=== PATIENT | female | born 2000 | race Caucasian/White ===

== ENCOUNTER 2020-10-22 11:49 | Outpatient (REF) | payer SELFPAY | END 2020-10-22 11:50 | disposition home or self-care (01) | LOC: HO.LAB 11:49 | PROVIDERS: Visit Provider Internal Medicine | DX: Z20.828 Contact with and (suspected) exposure to other viral communicable diseases (principal) | CPT/HCPCS: C9803; U0003 ==

== ENCOUNTER 2021-05-13 07:54 | Outpatient (REF) | payer OTHER, SELFPAY ==
[2021-05-13 08:29] LABS: MANUAL DIFF FLAG NO
[2021-05-13 08:33] LABS: Basophils Percent Auto 0.6 % (0-2); Eosinophils Absolute Auto 0.1 X10*3/uL (0.0-0.4); Eosinophils Percent Auto 1.8 % (0-4); Hematocrit 41.3 % (37-47); Hemoglobin 13.2 g/dl (12.0-16.0); Imm Gran Abs Auto 0.01 X10*3/uL (0.00-0.03); Imm Gran Pct Auto 0.2 % (0.0-0.4); Lymphocytes Absolute Auto 2.1 X10*3/uL (1.2-4.9); Lymphocytes Percent Auto 42.5 % (20-40); Mean Corpuscular Hemoglobin 29.9 pg (27.0-33.0); Mean Corpuscular Volume 93.7 fL (80-98); Mean Platelet Volume 10.3 fL (9.4-12.3); Monocytes Absolute Auto 0.3 X10*3/uL (0.1-1.2); Monocytes Percent Auto 6.3 % (2-11); Neutrophils Absolute Auto 2.4 X10*3/uL (2.0-8.3); Neutrophils Percent Auto 48.6 % (45-73); Platelet Count 278 X10*3/uL (160-400); Red Blood Count 4.41 X10*6/uL (4.20-5.50); Red Cell Distribution Width 12.9 % (11.0-16.0)
[2021-05-13 08:44] LABS: Estimated Average Glucose 103 mg/dL; Hemoglobin A1c % 5.2 %
[2021-05-13 09:15] LABS: Alanine Aminotransferase 7 U/L (0-31); Albumin Level 4.4 g/dL (3.5-5.0); Alkaline Phosphatase 60 U/L (39-117); Anion Gap 11 (12-20); Aspartate Amino Transferase 17 U/L (5-31); Bilirubin Total 0.6 mg/dL (0.0-1.0); Blood Urea Nitrogen 10 mg/dL (9-16); Calcium 9.6 mg/dL (8.4-10.2); Carbon Dioxide 24 mmol/L (22-29); Chloride 108 mmol/L (96-108); Cholesterol 152 mg/dL; Estimated Glomerular Filt Rate > 60; Glucose Fasting 93 mg/dL (60-99); HDL Cholesterol 69 mg/dL; LDL Cholesterol Calculated 71 mg/dl; Potassium 4.1 mmol/L (3.3-5.1); Sodium 139 mmol/L (135-145); Total Protein 7.2 g/dL (6.5-8.0); Triglycerides 60 mg/dL
[2021-05-13 09:37] LABS: Free T4 (Free Thyroxine) 0.99 ng/dL (0.71-1.85)
[2021-05-13 09:44] LABS: Vitamin B12 257 pg/mL (200-900)
== END 2021-05-13 07:55 | disposition home or self-care (01) ==
LOC: HO.LAB 07:54
PROVIDERS: PCP Internal Medicine; Visit Provider Nurse Practitioner Family
DX: R42 Dizziness and giddiness (principal)
CPT/HCPCS: 36415; 80053; 80061; 82306; 82607; 82746; 83036; 84439; 84443; 85025

== ENCOUNTER 2022-09-02 18:29 | Emergency (ER) | payer OTHER, SELFPAY ==
--- NOTE | ~2022-09-02 | XR_ITS ---
EXAMINATION: X-RAY RIGHT HAND/WRIST X-RAY LEFT HAND/WRIST CLINICAL INFORMATION: Trauma, pain. COMPARISON: None TECHNIQUE: 4 views of each hand/wrist were obtained. FINDINGS: Right hand/wrist: Comminuted mildly displaced fracture of the third proximal phalanx. No additional fractures. No unexpected radiopaque foreign bodies. Left hand/wrist: Comminuted mildly displaced fractures of the distal fourth and fifth metacarpal bones. No additional fractures. No unexpected radiopaque foreign bodies. XR/XR hand wrist LT IMPRESSION: 1. Comminuted mildly displaced fractures of the distal left fourth and fifth metacarpal bones. 2. Comminuted mildly displaced fracture of the right third proximal phalanx.
--- NOTE | ~2022-09-02 | XR_ITS ---
EXAMINATION: X-RAY RIGHT HAND/WRIST X-RAY LEFT HAND/WRIST CLINICAL INFORMATION: Trauma, pain. COMPARISON: None TECHNIQUE: 4 views of each hand/wrist were obtained. FINDINGS: Right hand/wrist: Comminuted mildly displaced fracture of the third proximal phalanx. No additional fractures. No unexpected radiopaque foreign bodies. Left hand/wrist: Comminuted mildly displaced fractures of the distal fourth and fifth metacarpal bones. No additional fractures. No unexpected radiopaque foreign bodies. XR/XR hand wrist RT IMPRESSION: 1. Comminuted mildly displaced fractures of the distal left fourth and fifth metacarpal bones. 2. Comminuted mildly displaced fracture of the right third proximal phalanx.
[2022-09-02 19:12] VITALS: BP 106/81; PULSE 73; RESP 18; TEMP 36.1; O2SAT 99; BMI 23.6
[2022-09-02] MEDS: Acetaminophen 325 MG TABLET 975 MG PO (23:29)
[2022-09-02] MEDS: Ibuprofen 400 MG TABLET PO (23:32)
[2022-09-03] VITALS: BP 127/75; PULSE 67; RESP 18; TEMP 37.1; O2SAT 98
--- NOTE | 2022-09-03 00:09 | PC.NURSE ---
PT VS AND SPLINTING WAS DONE BY THIS PCT .
--- NOTE | 2022-09-03 00:26 | ED_ITS ---
HPI - Extremity Problem General Chief complaint: Extremity Injury, Upper Stated complaint: sent by [facility] for xrays on wrist and fingers Time Seen by Provider: 09/02/22 22:01 Source: patient Mode of arrival: ambulatory History of Present Illness HPI Narrative: 21-year-old female who was at work and dropped a high press which crushed both hands. Related Data Previous Rx's Medication Instructions Recorded albuterol sulfate 90 mcg/actuation 2 puff inhalation Q4-6H PRN 05/12/21 aerosol inhaler (ProAir HFA) shortness of breath or wheezing 90 days #8.5 grams Allergies Allergy/AdvReac Type Severity Reaction Status Date / Time No Known Allergies Allergy Verified 05/12/21 15:01 Review of Systems Review of Systems: Pertinent positives and negatives as stated in HPI 10 point review of systems is otherwise negative. [facility] Past Medical History Source: nursing notes reviewed Medical History History of eclampsia History of pre-eclampsia Lightheadedness Polyuria Surgical History No history of previous surgery Family History Family History Father No problems noted. Mother No problems noted. Social History Social History Housing: House Alcohol intake: never Patient Tobacco Use Status: Never used Tobacco Advance Directives: No Advance Directives Information Provided: No service: No Current occupational status: employed Physical Exam Vital Signs: Vital Signs: Last Vital Signs Temp 98.7 F 09/03/22 00:00 Pulse 67 09/03/22 00:00 Resp 18 09/03/22 00:00 BP 127/75 09/03/22 00:00 Pulse Ox 98 09/03/22 00:00 O2 Del Method 09/03/22 00:00 BMI result Body Mass Index 23.6 VITAL SIGNS: Reviewed. GENERAL: Well developed, well nourished, in no acute distress. HEAD: Normocephalic/atraumatic EYES: PERRLA, EOMI EARS: Ext canals without abnormality OROPHARYNX: no oral lesions noted, posterior pharynx clear LUNGS: Normal breath sounds. No adventitious sounds or accessory muscle use. SpO2<98> CARDIOVASCULAR: Regular rate and rhythm without noted murmurs ABDOMEN: Soft, non-tender, non-distended with bowel sounds. MUSCULOSKELETAL: No tenderness, deformities, or effusions noted on gross inspection. EXTREMITIES: No cyanosis, clubbing or edema. LEFT HAND: Significant swelling and ecchymosis over the dorsal aspect of the left hand with difficulty in movement of the 4th and 5th digits but otherwise sensation is intact, capillary refill is intact and palpable radial/ulnar pulses. RIGHT HAND: Significant swelling and ecchymosis primarily over the 3rd digit with sensation intact. SKIN: Inspection of the skin reveals no rashes NEUROLOGIC: Alert and oriented x 4. Strength and sensation to light touch were grossly intact x 4. Course Course Course Narrative: 21-year-old female with history and clinical presentation consistent with crush injury and suspect multiple fractures. On review of all imaging studies there are noted comminuted, mildly displaced fractures of the distal left 4th and 5th metacarpal bones and comminuted mildly displaced fracture of the right 3rd proximal phalanx. Patient was provided with combination analgesics, Tdap, ulnar gutters were placed, patient will be given a referral to see orthopedics and understands that she needs to call 1st thing in the morning to set up an appointment for re-evaluation and she will be given a referral to [facility]. Discharge Plan Discharge Clinical Impression: Fracture of fourth metacarpal bone of left hand, Fracture of fifth metacarpal bone, Fracture of proximal phalanx of middle finger Patient Disposition: Home, Self-Care Instructions: Hand Fracture (ED), Splint Care (ED) Additional Instructions: 1. Tylenol 1000 mg, por v?a oral, cada 6 horas seg?n sea necesario para controlar el dolor. No exceda los 4000 mg dentro de las 24 horas. 2. Ibuprofeno 400 mg, por v?a oral con leche o alimentos, cada 6 horas seg?n sea necesario para controlar el dolor. Puede janet izabella medicamento con Tylenol. 3. Aplique hielo sobre la piel no expuesta rangel 5 a 10 minutos, 3 a 4 veces al d?a. Querr? mantener lakesha extremidades elevadas cuando sea posible. 4. Se le [place] dado joanne referencia a la conexi?n de trabajo. 5. Por favor llame a la oficina de ortopedia en la ma?juany, tamez referencia linh se indica a continuaci?n. Regrese a la trevor de emergencias si los s?ntomas empeoran. Prescriptions: No Action albuterol sulfate [ProAir HFA] 90 mcg/actuation HFA aerosol inhaler 2 puff inhalation Q4-6H PRN (Reason: shortness of breath or wheezing) 90 Days Qty: 8.5 3RF Referrals: Juany Haney MD [Primary Care Provider] - Marcia Ponce MD [Physician] - (21-year-old female with comminuted fractures of the left 4th and 5th metacarpal bones as well as comminuted fract ure of the right proximal phalanx of the middle finger. Ulnar gutter splints placed on both hands. Patient is right-hand dominant) [facility] [Outside] Stand Alone Forms: Work/School Release Print Language: Jamaican
[2022-09-03] MEDS: Diphth,Pertus(ACell),Tet Adult 0.5 ML SYRINGE IM (00:39)
== END 2022-09-03 00:51 | disposition home or self-care (01) ==
PROVIDERS: Emergency Provider Student in an Organized Health Care Education/Training Program; PCP Internal Medicine
DX: S62.305A Unspecified fracture of fourth metacarpal bone, left hand, initial encounter for closed fracture (principal); S62.307A Unspecified fracture of fifth metacarpal bone, left hand, initial encounter for closed fracture; S62.613A Displaced fracture of proximal phalanx of left middle finger, initial encounter for closed fracture; S60.512A Abrasion of left hand, initial encounter; X58.XXXA Exposure to other specified factors, initial encounter; Y93.9 Activity, unspecified; Y92.9 Unspecified place or not applicable; Y99.9 Unspecified external cause status; Z79.899 Other long term (current) drug therapy
CPT/HCPCS: 29130; 73110; 73130; 90471; 90715; 99283; 99284

== ENCOUNTER 2022-09-06 15:28 | Outpatient (REF) | payer OTHER, SELFPAY ==
--- NOTE | ~2022-09-06 | XR_ITS ---
EXAMINATION: XR HAND, LEFT CLINICAL INFORMATION: Pain in left hand COMPARISON: 09/02/2022 TECHNIQUE: PA, lateral, and oblique views of the left hand. FINDINGS: There is stable mildly comminuted fracture over the fourth and fifth metacarpal bones XR/XR hand LT min 3V IMPRESSION: Mildly comminuted fracture of the fourth and fifth metacarpal bones on the
== END 2022-09-06 15:29 | disposition home or self-care (01) ==
LOC: HO.HOSX 15:28
PROVIDERS: Visit Provider Orthopaedic Surgery
DX: S62.612A Displaced fracture of proximal phalanx of right middle finger, initial encounter for closed fracture (principal); S62.325A Displaced fracture of shaft of fourth metacarpal bone, left hand, initial encounter for closed fracture; S62.337A Displaced fracture of neck of fifth metacarpal bone, left hand, initial encounter for closed fracture; W31.82XA Contact with other commercial machinery, initial encounter; Y93.89 Activity, other specified; Y92.63 Factory as the place of occurrence of the external cause; Y99.0 Civilian activity done for income or pay
CPT/HCPCS: 73130; 99202

== ENCOUNTER 2022-09-08 10:56 | Day surgery (SDC) | payer OTHER, SELFPAY ==
[2022-09-08] VITALS (7 sets, daily range): BP systolic 104–129; BP diastolic 69–78; PULSE 63–90; RESP 16–18; TEMP 36.1–36.6; O2SAT 100; BMI 22.6
--- NOTE | ~2022-09-08 | FL_ITS ---
EXAMINATION: XR FLUOROSCOPY WITH IMAGES CLINICAL INFORMATION: Fracture right middle finger COMPARISON: Radiographs right hand wrist 09/02/2022 TECHNIQUE: Fluoroscopy Supervised By: Dr. Marcia Ponce. Fluoroscopy Time: 21 seconds. Cumulative Dose: 0.5180 mGy. Images: 4. FINDINGS: Fracture third finger middle phalanx is reduced with 2 orthopedic pins. Fracture fragments are in near-anatomic alignment. Hardware is intact. No dislocation. FL/FL guidance in OR IMPRESSION: Status post open reduction internal fixation third finger middle phalanx.
--- NOTE | 2022-09-08 11:11 | PC.NURSE ---
medical parasitologist present during admission
[2022-09-08 11:31] LABS: UPreg QC Valid YES; Urine Pregnancy NEGATIVE (NEGATIVE)
--- NOTE | 2022-09-08 11:49 | P.CONAN_ITS ---
HPI - Anesthesia Eval Consult details Narrative: Fracture right middle finger PMFSH Active Problems Active Problems: All Active Problems (Updated 09/06/22 @ 18:29 by DELL Melara) Adult general medical exam (Acute) Cervical cancer screening (Acute) Closed fracture of neck of fifth metacarpal bone of left hand (Acute) Closed fracture of shaft of fourth metacarpal bone of left hand (Acute) Fracture of proximal phalanx of right middle finger (Acute) Low vitamin D level (Acute) Lightheadedness (Acute) Asthma (Acute) Polyuria (Acute) Past Medical History Medical History History of blurry vision History of eclampsia History of pre-eclampsia Lightheadedness Polyuria Family History Family History Father No problems noted. Mother No problems noted. 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 Cognitive needs: No Hearing needs: No Vision needs: No Meds Allergies Allergy/AdvReac Type Severity Reaction Status Date / Time No Known Allergies Allergy Verified 09/06/22 16:49 Exam Exam Date and Time: September 08, 2022 1149 Height,Weight and Vital Signs: Height 5 ft 1 in Weight 54.431 kg Last Vital Signs Temp 97.9 F 09/08/22 11:36 Pulse 90 09/08/22 11:36 Resp 18 09/08/22 11:36 BP 129/78 09/08/22 11:36 Pulse Ox 100 09/08/22 11:36 O2 Del Method 09/08/22 11:36 Pertinent Lab Results Pertinent Lab Results: Laboratory Tests 09/08/22 09/08/22 11:00 11:00 Urine Test NEGATIVE [facility] Cancelled Airway Mallampati Class: II TM Dist: >3cm Neck ROM: Full Loose/Missing/Broken Teeth: Yes (right upper back tooth loose) Heart: rrr+[id number] Lungs: cta b/l Assessment and Plan Assessment Anesthesia Assessment: Anesthesia Plan Discussed and Chart Reviewed Final Anesthetic Review Family History of Problems with Anesthesia: No History of Problems with Anesthesia: No NPO: Yes ASA Class: II Final Preanesthetic Review: No Changes in Pt Med Stat, Meds/Allgs Chart Reviewed, Consent Obtained/Reviewed and Anes Risks/Benef Reviewed Patient Risk: Intermediate Procedure Risk: Intermediate Assessment/Block/Sedation in SS: Assess/Block/Sedation-SS Anesthetic Plan Anesthetic Plan: GA and Agree w/ Assess. and Plan Disposition: Standard PACU
--- NOTE | 2022-09-08 12:35 | MHC.SHP ---
Pre-Procedural Eval Section A Date of Service: 09/08/22 The patient is an INPATIENT: No Changes since office visit: No Cold of Flu in the past 2 weeks, No New Medical Problems, No Changes in Medication and No Patient answered all questions The History & Physical has been completed within 30 days and I have reviewed it.: Yes Section B Chief Complaint: Displaced fracture of proximal phalanx of right mi Allergies: Allergies Allergy/AdvReac Type Severity Reaction Status Date / Time No Known Allergies Allergy Verified 09/06/22 16:49 Plan I have reviewed the history and physical and performed a pertinent physical examination on my patient. No changes have occurred unless specified.
--- NOTE | 2022-09-08 12:36 | W.PM.OPN ---
Operative Note Operative Note Date of Service: 09/08/22 Narrative: Operative Note Narrative: Preop diagnosis: 1. Right middle finger proximal phalanx fracture Postop diagnosis: Same Procedure: 1. Right middle finger proximal phalanx fracture CRPP Surgeon: Marcia Ponce MD Anesthesia: General Anesthesia Findings: finger fracture Implants: 0.045 K-wires times 2 Tourniquet time: None EBL: Minimal Specimen: None Drains: None Complications: None Disposition: Brought to the recovery room in stable condition Plan: Follow-up in 10-14 days for a wound check, postop radiographs and for placement in a short-arm finger spica cast. We can allow for PIP motion. Also obtain radiographs of her left hand to evaluate her 4th and 5th metacarpal fractures. Out of plaster. Anticipate K-wire removal in 4 weeks based on interval bony healing Educate the patient that full fracture healing anticipated in approximately 8-12 weeks. Indications: The patient is 21 years old with a right middle finger proximal phalanx fracture after getting her hand caught in a pie press . The risks and benefits of operative treatment, including but not limited to risk of damage to blood vessels, nerves, tendons, infection, recurrence, delayed or nonunion of fracture, persistent pain or numbness, incomplete resolution of preoperative symptoms, or need for further surgery were discussed with the patient and they wished to proceed with surgery. Procedure: Once consent was obtained patient was brought back to the operating suite and placed in the operating table in a supine position. . Perioperative antibiotics and general anesthesia was administered by the anesthesia team. A tourniquet was applied to the proximal aspect of the right upper extremity and the limb was prepped and draped in a standard surgical fashion. Tourniquet was not inflated during the case. The FluoroScan was used during the case to assist with our fracture reduction and placement of all implants. A closed reduction was performed on the patient's right middle finger proximal phalanx fracture. I placed a 0.045 K-wire through the radial base of the proximal phalanx. This was advanced distally across the fracture site and down the shaft of the proximal phalanx. Once satisfied with the reduction and position of this K-wire I then placed a 2nd 0.045 K-wire through the ulnar base of the proximal phalanx. This also was advanced distally cross the fracture site and down the shaft. We achieved essentially anatomic alignment with good opposition at the fracture site. Fracture alignment was assessed for both angular and clinical rotational malalignment. Once satisfied with our fracture reduction and implant placement, the K-wires were bent and cut short and pin caps applied. Final fluoroscopic images were then obtained. The wounds were copiously irrigated with normal saline. A digital block was performed with some 0.5% plain ropivacaine for postop pain control. A Sterile dressing and volar splint extending to the forearm was applied. The patient appears to have tolerated the procedure well and with no complications. All digits were well vascularized at the conclusion of the case.
--- NOTE | 2022-09-08 12:40 | PC.NURSE ---
LR unable to be scanned was not in computer as requested, prior to patient going into OR.
[2022-09-08] MEDS: Ondansetron ODT 4 MG TAB.RAPDIS TRANSLINGU (15:27)
--- NOTE | 2022-09-08 15:33 | PC.NURSE ---
PT NAUSEOUS IN DC AREA. ORDER OBTAINED FROM DR. IZQUIERDO FOR ZOFRAN AND PATIENT GIVEN ZOFRAN PER ORDER.
--- NOTE | 2022-09-08 15:40 | PC.NURSE ---
PATIENT STATES FEELING MUCH BETTER AFTER GIVEN ZOFRAN AND STATES SHE IS READY TO GO HOME.
== END 2022-09-08 15:41 | disposition home or self-care (01) ==
PROVIDERS: PCP Internal Medicine; Visit Provider Orthopaedic Surgery
PROC: (CPT 26727; principal; 2022-09-08 12:30)
DX: S62.612A Displaced fracture of proximal phalanx of right middle finger, initial encounter for closed fracture (principal); W31.89XA Contact with other specified machinery, initial encounter; Y93.89 Activity, other specified; Y92.63 Factory as the place of occurrence of the external cause; Y99.0 Civilian activity done for income or pay
CPT/HCPCS: 26727; 81025; J0171; J0690; J1100; J1170; J2250; J2405; J2795; J3010

== ENCOUNTER 2022-09-20 14:01 | Outpatient (REF) | payer OTHER, SELFPAY ==
--- NOTE | ~2022-09-20 | XR_ITS ---
EXAMINATION: XR HAND, RIGHT CLINICAL INFORMATION: Pain right hand. COMPARISON: Fluoroscopy guidance 09/08/2022. TECHNIQUE: 3 views of the right hand. FINDINGS: There are two orthopedic screws stabilizing a mid segment fracture of the proximal phalanx of the 3rd digit. The hardware is intact. No bony abnormality is seen. XR/XR hand RT min 3V IMPRESSION: Orthopedic screws stabilizing a mid segment fracture of the proximal phalanx of the 3rd digit. Hardware is intact. No other bony abnormality is seen. No change from the previous study 09/08/2022.
== END 2022-09-20 14:02 | disposition home or self-care (01) ==
LOC: HO.HOSX 14:01
PROVIDERS: Visit Provider Orthopaedic Surgery
DX: M79.641 Pain in right hand (principal)
CPT/HCPCS: 73130

== ENCOUNTER 2022-09-21 10:36 | Outpatient (REF) | payer SELFPAY ==
--- NOTE | ~2022-09-21 | XR_ITS ---
EXAMINATION: XR HAND, RIGHT CLINICAL INFORMATION: Pain right hand. COMPARISON: Fluoroscopy guidance 09/08/2022. TECHNIQUE: 3 views of the right hand. FINDINGS: There are two orthopedic screws stabilizing a mid segment fracture of the proximal phalanx of the 3rd digit. The hardware is intact. No bony abnormality is seen. XR/XR hand LT min 3V IMPRESSION: Orthopedic screws stabilizing a mid segment fracture of the proximal phalanx of the 3rd digit. Hardware is intact. No other bony abnormality is seen. No change from the previous study 09/08/2022.
== END 2022-09-21 10:37 | disposition home or self-care (01) ==
LOC: HO.HOSX 10:36
PROVIDERS: Visit Provider Orthopaedic Surgery
DX: M79.642 Pain in left hand (principal)
CPT/HCPCS: 73130

== ENCOUNTER 2022-10-05 | Outpatient (REF) | payer OTHER, SELFPAY ==
--- NOTE | ~2022-10-05 | XR_ITS ---
EXAMINATION: XR HAND, BILATERAL CLINICAL INFORMATION: Pain. COMPARISON: Bilateral hand 09/21/2022. TECHNIQUE: 3 views each hand. FINDINGS: Right Hand: There are 2 orthopedic screws stabilizing mid segment fracture of proximal phalanx 3rd digit. The hardware is intact. Left Hand: There are nondisplaced fractures left distal 4th and 5th metacarpals. It is stable compared 09/21/2022. No other fractures seen. The soft tissues are normal. XR/XR hand LT min 3V IMPRESSION: 1. Nondisplaced fracture distal 4th and 5th metacarpals left hand are stable. There are 2 orthopedic screws stabilizing mid segment fracture proximal phalanx 3rd digit right hand. The hardware is intact. No change from 09/21/2022.
--- NOTE | ~2022-10-05 | XR_ITS ---
EXAMINATION: XR HAND, BILATERAL CLINICAL INFORMATION: Pain. COMPARISON: Bilateral hand 09/21/2022. TECHNIQUE: 3 views each hand. FINDINGS: Right Hand: There are 2 orthopedic screws stabilizing mid segment fracture of proximal phalanx 3rd digit. The hardware is intact. Left Hand: There are nondisplaced fractures left distal 4th and 5th metacarpals. It is stable compared 09/21/2022. No other fractures seen. The soft tissues are normal. XR/XR hand RT min 3V IMPRESSION: 1. Nondisplaced fracture distal 4th and 5th metacarpals left hand are stable. There are 2 orthopedic screws stabilizing mid segment fracture proximal phalanx 3rd digit right hand. The hardware is intact. No change from 09/21/2022.
== END 2022-10-05 00:01 | disposition home or self-care (01) ==
LOC: HO.HOSX
PROVIDERS: Visit Provider Orthopaedic Surgery
DX: M79.641 Pain in right hand (principal); M79.642 Pain in left hand
CPT/HCPCS: 73130

== ENCOUNTER 2022-10-11 15:47 | Outpatient (REF) | payer OTHER, SELFPAY ==
[2022-10-12 14:20] LABS: CT PCR NOT DETECTED (Not Detect.); NG PCR NOT DETECTED (Not Detect.)
[2022-10-13 11:14] LABS: BV Int Neg Control Negative (Negative); BV Int Pos Control Positive (Positive)
== END 2022-10-11 15:48 | disposition home or self-care (01) ==
LOC: HO.LNP 15:47
PROVIDERS: Visit Provider Advanced Practice Midwife
DX: Z12.4 Encounter for screening for malignant neoplasm of cervix (principal); Z11.3 Encounter for screening for infections with a predominantly sexual mode of transmission
CPT/HCPCS: 87480; 87491; 87510; 87591; 87624; 87660; 88142

== ENCOUNTER 2022-10-12 09:40 | Outpatient (RCR) | payer OTHER, SELFPAY ==
--- NOTE | 2022-10-12 17:16 | MHC.OT.EP ---
[address] [phone] Occupational Therapy Plan of Care Date of Evaluation: 10/12/22 Diagnosis: R D3 PP fx CRPP, L D4 MC fx L D5 MC fx Assessment: Pt is a 21 yo female 5 weeks s/p CRPP of right D5 PP fx and 5 weeks 3 days s/p closed reduction left D4 and D5 MC fx due to a bilateral hand crush injury in a pie press at work Today she presents with a complaint of moderately high bilateral hand pain with exercise and at rest and right D3 PIP and DIPj stiffness. 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 She will benefit from OT to address pain , ROM , strength and activity tolerance for a safe return to work Frequency and Duration: The patient will be seen 2x wk x 6 wks Short Term Goals: Demo indep with HEP Demo right D3 to DPC Dec pain with to < 4/10 with daily home activities Tolerate gentle hand and wrist strengthening ex and activities Sleep not disrupted due to hand pain Quick DASH score to < 40 pts Mcc Goals: Bilateral hand AROM to WNL Bilateral eyeglass fitter strength to > 35 lb Demo safe lift of > 15 lb Report mild difficulty with daily activities with modifications as needed Quick DASH < 20 pt Treatment Plan: Therapeutic Exercise Therapeutic Activity Home Exercise Program Patient Education ADL Training Ultrasound NMES Fluidotherapy Electronically Signed By: Jessie Waters OT CHT CLT Please Sign and return to therapist. Thank you once again for your referral.
--- NOTE | 2022-11-03 12:03 | MHC.OT.DC ---
[address] [phone] F: [phone] Occupational Therapy Discharge Note Provider: Marcia Ponce Diagnosis: R D3 PP fx CRPP, L D4 MC fx L D5 MC fx Date of Surgery: 09/08/22 Date of Evaluation: 10/12/22 Date of Discharge: 11/03/22 Treatments to Date: 1 Cancellations to Date: 2 No Shows to Date: 2 Discharge Status: Recommend MD Follow-up Visit Non-compliance Discharge Summary: Pt seen for eval only with instruction and practice with ROM ex. See eval for details She had a follow up appointment with Dr Ponce on 11/01/21 and no showed her last scheduled OT appointment today Two cancellations and two no show appointments including today Electronically Signed By: Jessie Waters OT CHT CLT Reviewed/agree with student documentation: N/A Therapist: Please Sign and return to therapist, thank you for your referral.
== END 2022-11-03 12:04 | disposition home or self-care (01) ==
LOC: HO.OT 09:40
PROVIDERS: PCP Student in an Organized Health Care Education/Training Program; Visit Provider Orthopaedic Surgery
DX: S62.337D Displaced fracture of neck of fifth metacarpal bone, left hand, subsequent encounter for fracture with routine healing (principal); S62.325D Displaced fracture of shaft of fourth metacarpal bone, left hand, subsequent encounter for fracture with routine healing; S62.312D Displaced fracture of base of third metacarpal bone, right hand, subsequent encounter for fracture with routine healing
CPT/HCPCS: 97110; 97165

== ENCOUNTER 2022-10-25 09:09 | Outpatient (REF) | payer OTHER, SELFPAY | END 2022-10-25 09:10 | disposition home or self-care (01) | LOC: HO.HOSX 09:09 | PROVIDERS: Visit Provider Orthopaedic Surgery | DX: Z13.89 Encounter for screening for other disorder (principal) ==

== ENCOUNTER 2022-10-27 15:14 | Outpatient (REF) | payer OTHER, SELFPAY | END 2022-10-27 15:15 | disposition home or self-care (01) | LOC: HO.HOSX 15:14 | PROVIDERS: Visit Provider Orthopaedic Surgery | DX: Z13.89 Encounter for screening for other disorder (principal) ==

== ENCOUNTER 2022-11-01 15:14 | Outpatient (REF) | payer OTHER, SELFPAY ==
--- NOTE | ~2022-11-01 | XR_ITS ---
EXAMINATION: XR hand LT min 3V, XR hand RT min 3V CLINICAL INFORMATION: Reason for Exam M79.642 - Pain in left hand COMPARISON: 10/05/2022 TECHNIQUE: PA, oblique and lateral views of each hand FINDINGS: Right hand: Healing fracture of third proximal phalangeal diaphysis with decreased conspicuity of the fracture indicative of endosteal bridging associated with periosteal callus formation. Fracture is in anatomic alignment. Left hand: Healing fractures of the fourth and fifth metacarpal necks with endosteal bridging and periosteal callus formation. Fractures are in near-anatomic alignment. XR/XR hand RT min 3V IMPRESSION: RIGHT HAND: Healing fracture of the third proximal phalangeal diaphysis. LEFT HAND: Healing fractures of the fourth and fifth metacarpal necks.
--- NOTE | ~2022-11-01 | XR_ITS ---
EXAMINATION: XR hand LT min 3V, XR hand RT min 3V CLINICAL INFORMATION: Reason for Exam M79.642 - Pain in left hand COMPARISON: 10/05/2022 TECHNIQUE: PA, oblique and lateral views of each hand FINDINGS: Right hand: Healing fracture of third proximal phalangeal diaphysis with decreased conspicuity of the fracture indicative of endosteal bridging associated with periosteal callus formation. Fracture is in anatomic alignment. Left hand: Healing fractures of the fourth and fifth metacarpal necks with endosteal bridging and periosteal callus formation. Fractures are in near-anatomic alignment. XR/XR hand LT min 3V IMPRESSION: RIGHT HAND: Healing fracture of the third proximal phalangeal diaphysis. LEFT HAND: Healing fractures of the fourth and fifth metacarpal necks.
== END 2022-11-01 15:15 | disposition home or self-care (01) ==
LOC: HO.HOSX 15:14
PROVIDERS: Visit Provider Orthopaedic Surgery
DX: S62.612D Displaced fracture of proximal phalanx of right middle finger, subsequent encounter for fracture with routine healing (principal); S62.325D Displaced fracture of shaft of fourth metacarpal bone, left hand, subsequent encounter for fracture with routine healing; S62.337D Displaced fracture of neck of fifth metacarpal bone, left hand, subsequent encounter for fracture with routine healing
CPT/HCPCS: 73130; 99212

== ENCOUNTER → 2022-12-06 14:09 | Outpatient (BNVA) | payer OTHER, SELFPAY | PROVIDERS: Visit Provider Orthopaedic Surgery | DX: S62.612D Displaced fracture of proximal phalanx of right middle finger, subsequent encounter for fracture with routine healing (principal); S62.325D Displaced fracture of shaft of fourth metacarpal bone, left hand, subsequent encounter for fracture with routine healing; S62.337D Displaced fracture of neck of fifth metacarpal bone, left hand, subsequent encounter for fracture with routine healing | CPT/HCPCS: 99212 ==

== ENCOUNTER 2023-01-05 13:00 | Outpatient (RCR) | payer OTHER, SELFPAY ==
--- NOTE | 2023-01-16 08:53 | MHC.OT.DC ---
[address] [phone] F: [phone] Occupational Therapy Discharge Note Patient Name: Kathrin Crowley Provider: Marcia Ponce Diagnosis: Displaced fracture of proximal phalanx of right middle finger PP, CRPP Mild displaced fracture of fourth metacarpal bone of left hand: Mild displaced fracture of fifth metacarpal bone of left hand Date of Surgery: 09/08/22 Date of Evaluation: 12/26/22 Date of Discharge: 01/16/23 Treatments to Date: 2 Cancellations to Date: 3 No Shows to Date: 4 Discharge Status: Visit Non-compliance Discharge Summary: Good improvement in pain and AROM. AROM is WNL. Pt with low UE strength bilaterally at 20 lb , that is pain-free. Pt with alternate duty that is light she expects to keep same job when released from light duty Electronically Signed By: Jessie Waters OT CHT CLT Reviewed/agree with student documentation: Therapist: Please Sign and return to therapist, thank you for your referral.
== END 2023-03-01 09:09 | disposition home or self-care (01) ==
LOC: HO.OT 13:00
PROVIDERS: PCP Internal Medicine; Visit Provider Orthopaedic Surgery
DX: S62.337D Displaced fracture of neck of fifth metacarpal bone, left hand, subsequent encounter for fracture with routine healing (principal); S62.325D Displaced fracture of shaft of fourth metacarpal bone, left hand, subsequent encounter for fracture with routine healing; S62.612D Displaced fracture of proximal phalanx of right middle finger, subsequent encounter for fracture with routine healing
CPT/HCPCS: 97110; 97165

== ENCOUNTER 2023-01-18 12:37 | Outpatient (REF) | payer OTHER, SELFPAY ==
--- NOTE | ~2023-01-18 | XR_ITS ---
EXAMINATION: XR HAND, RIGHT CLINICAL INFORMATION: Follow-up fracture COMPARISON: Previous x-ray October 2022 TECHNIQUE: PA, lateral, and oblique views of the right hand. FINDINGS: There is a healing nondisplaced fracture of the midshaft of the third proximal phalanx. Fracture line faintly seen. Increased bony callus formation and cortical thickening suggestive of healing. No other fracture. Normal joint spaces. Normal soft tissues. XR/XR hand RT min 3V IMPRESSION: Healing right third finger proximal phalanx fracture.
== END 2023-01-18 12:38 | disposition home or self-care (01) ==
LOC: HO.HOSX 12:37
PROVIDERS: Visit Provider Orthopaedic Surgery
DX: S62.612A Displaced fracture of proximal phalanx of right middle finger, initial encounter for closed fracture (principal); S62.325A Displaced fracture of shaft of fourth metacarpal bone, left hand, initial encounter for closed fracture; S62.337A Displaced fracture of neck of fifth metacarpal bone, left hand, initial encounter for closed fracture
CPT/HCPCS: 73130; 99212

== ENCOUNTER 2024-02-15 13:25 | Outpatient (AMB) | payer OTHER, SELFPAY ==
[2024-02-15 13:41] VITALS: BP 102/70; BMI 25.5
--- NOTE | 2024-02-15 13:41 | A.OFFPC_ITS ---
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 Last Pap smear was 2021 and was normal. Denies any chest pain or shortness of breath. No change in bowel or bladder habits. No acute complaints. [facility] Medical History (Updated 02/15/24 @ 14:15 by Juany Siegel MD) History of blurry vision Lightheadedness History of pre-eclampsia History of eclampsia Polyuria Surgical History History of carpal tunnel surgery Family History Father No problems noted. Mother No problems noted. 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 1. Little interest or pleasure in doing things: not at all 2. Feeling down, depressed, or hopeless: not at all 3. Trouble falling or staying asleep, or sleeping too much: not at all 4. Feeling tired or having little energy: not at all 5. Poor appetite or overeating: not at all 6. Feeling bad about yourself - or that you are a failure or have let yourself or your family down: not at all 7. Trouble concentrating on things, such as reading the newspaper or watching television: not at all 8. Moving or speaking so slowly that other people could have noticed. Or the opposite - being so fidgety or restless that you have been moving around a lot more than usual: not at all 9. Thoughts that you would be better off or of hurting yourself in some way: not at all Total score: 0 Depression Screening Interpretation: Negative Depression Screening Done: Yes 04254 - PHQ-9 Billing: Yes Source: Developed by Drs. John Paul Vallecillo, Viri Ellison, Henrique Quintero and colleagues, with an educational conchita from [employer]. Thrive Questionnaire Date Thrive assessed: 02/15/24 I am a: Patient What is your living situation today?: I have a steady place to live Within the past 12 months, did the food you bought not last and you didn't have the money to get more?: Never true Within the past 12 months, did you worry whether your food would run out before you got money to buy more?: Never true Do you have trouble paying for medicines?: No Do you have trouble getting transportation to medical appointments?: No Do you have trouble paying your heating and electricity bill?: No Do you have trouble taking care of your child, family member or friend?: No Do you have trouble with day-to-day activities such as bathing, preparing meals, shopping, managing finances, etc.?: No Are you currently unemployed and looking for a job?: No Are you interested in more education?: No Please select the resources that you would like help with: None Currently or been in a relationship where the following occur: no concerns reported THRIVE Score: 0 AUDIT C Alcohol Use Questionnaire (AUDIT-C) 1. How often do you have a drink containing alcohol?: Never Total Score: 0 Score Reviewed/Action Taken: No GERMANIA-7 AMB Questionnaire GERMANIA-7 Date GERMANIA - 7 assessed: 02/15/24 Feeling nervous, anxious, or on edge: 0 = Not at all Not being able to stop or control worryin = Not at all Worrying too much about different things: 0 = Not at all Trouble relaxin = Not at all Being so restless that it is hard to sit still: 0 = Not at all Becoming easily annoyed or irritable: 0 = Not at all Feeling afraid as if something awful might happen: 0 = Not at all Total GERMANIA-7 score (0-4 normal; 5-9 mild; 10-14 moderate; 15-21 severe): 0 Source: Developed by Drs. John Paul Vallecillo, Viri Ellison, Henrique Quintero and colleagues, with an educational conchita from [employer]. GERMANIA-7 Assessment Billing GERMANIA-7 Assessment Tool: GERMANIA-7 Assessment 59676 Review of Systems Const All systems reviewed & are unremarkable except as noted in HPI and below Eyes Reports no additional complaints, Denies change in vision and Denies other visual disturbances Card Denies chest pain at rest, Denies chest pain with activity, Denies edema, Denies irregular heart rhythm, Denies claudication, Denies dyspnea, Denies dyspnea on exertion, Denies orthopnea, Denies paroxysmal nocturnal dyspnea and Denies slow heart rate Resp Denies cough, Denies dyspnea and Denies dyspnea on exertion Physical exam (Primary Care) Vital Signs: Last Vital Signs BP 102/70 02/15/24 13:41 BMI result Body Mass Index 25.5 Tobacco/Smoking Status: Tobacco use Status Tobacco use date assessed 02/15/24 02/15/24 13:48 Patient Tobacco Use Status Never used Tobacco 02/15/24 13:48 e-Cigarette/Vaping Use Never Used 02/15/24 13:48 PHQ-9: PHQ-9 Score PHQ-9: Total score 0 02/15/24 13:48 Depression Screening Interpretation: Negative Thrive Assessment: Date of Thrive Assessment Date Thrive assessed 02/15/24 02/15/24 13:48 Currently or been in a relationship where the following occur: no concerns reported Const Orientation/consciousness: patient oriented x3 HENMT Head: Yes normal to inspection, Yes normocephalic and Yes atraumatic Ears: external ears normal Eyes General: appearance normal, both eyes and all related structures Eyelids: Yes eyelids normal Conjunctivae: conjunctivae normal Neck Neck: Yes normal visual inspection and Yes supple Resp Effort & Inspection: normal respiratory effort Auscultation: clear to auscultation bilaterally Cardio Jugular venous distension: no JVD Rate: regular rate Rhythm: regular rhythm Heart sounds: S1 normal heart sound present and S2 normal heart sound present GI Inspection: Yes normal to inspection Palpation (GI): Soft to palpation and nontender Auscultation: normal bowel sounds Skin General skin exam: no rashes or lesions noted Neuro General: patient oriented x3 and no focal motor deficits Extrem General: Yes full ROM Psych Appearance: grossly normal Assessment and Plan Assessment & Plan (1) Physical exam: Code(s): Z00.00 - Encounter for general adult medical examination without abnormal findings Plan: Repeat in a year. Orders: Orders Comprehensive [place]. Panel Fast Today Z00.00 - Encounter for general adult medical examination without abnormal findings Lipid Panel Today Z00.00 - Encounter for general adult medical examination without abnormal findings Coding Level of Care Code Est Pt Prev Care 18-39y(05927) Diagnoses Physical exam Z00.00 Additional Codes GERMANIA-7 Assessment Billing - GERMANIA-7 Assessment Tool: GERMANIA-7 Assessment 10715 ([id number]) Time Spent (min) 30
== END 2024-02-15 14:15 | disposition home or self-care (01) ==
PROVIDERS: Visit Provider Internal Medicine
DX: Z00.00 Encounter for general adult medical examination without abnormal findings (principal)
CPT/HCPCS: 99395

== ENCOUNTER 2025-05-26 09:20 | Outpatient (REF) | payer OTHER, SELFPAY ==
[2025-05-26 10:01] LABS: MANUAL DIFF FLAG NO
[2025-05-26 10:14] LABS: Hematocrit 35.4 % (37.0-47.0); Hemoglobin 10.8 g/dl (12.0-16.0); Imm Gran Abs Auto 0.01 X10*3/uL (0.00-0.03); Imm Gran Pct Auto 0.2 % (0.0-0.4); Lymphocytes Absolute Auto 1.6 X10*3/uL (1.2-4.9); Mean Corpuscular HGB Conc 30.5 g/dl (31.0-35.0); Mean Corpuscular Hemoglobin 25.4 pg (27.0-33.0); Mean Corpuscular Volume 83.3 fL (80.0-98.0); NRBC Abs Auto 0.000 X10*3/uL (0.0-0.012); NRBC Pct Auto 0.0 /100WBC (0.0-0.2); Platelet Count 356 X10*3/uL (160-400); Red Blood Count 4.25 X10*6/uL (4.20-5.50); White Blood Count 5.0 X10*3/uL (4.8-10.8)
[2025-05-26 11:01] LABS: HBS Num1 2.87 mIU/mL (0-7.99); ~Hepatitis B Surface Antibody NONREACTIVE (Nonreactive)
[2025-05-27 18:22] LABS: Rubeola IgG (Measles) 63.00 AU/mL
[2025-05-29 12:42] LABS: TS Negative Control Passed; TS Panel A 1; TS Panel B 2; TS Positive Control Passed; TSpotTB Negative (Negative)
== END 2025-05-26 09:21 | disposition home or self-care (01) ==
LOC: HO.10HDL 09:20
PROVIDERS: Visit Provider Internal Medicine
DX: Z01.84 Encounter for antibody response examination (principal); Z11.1 Encounter for screening for respiratory tuberculosis; Z11.59 Encounter for screening for other viral diseases; Z13.31 Encounter for screening for depression
CPT/HCPCS: 36415; 85025; 86481; 86706; 86762; 86765; 86787